=== PATIENT | female | born 1990 | race Caucasian/White ===

== ENCOUNTER → 2018-06-06 15:27 | Outpatient (CLI) | payer SELFPAY ==
[2018-06-06 16:13] LABS: Add Manual Diff / Slide Review NO; Basophils Absolute Auto 100 /uL (0-100); Basophils Percent Auto 0.5 % (0-2); Eosinophils Absolute Auto 100 /uL (0-450); Eosinophils Percent Auto 0.9 % (2-4); Hematocrit 40.3 % (36-46); Hemoglobin 13.8 g/dL (12.0-16.0); Lymphocytes Absolute Auto 3000 /uL (1100-4500); Lymphocytes Percent Auto 21.6 % (25-40); Mean Corpuscular HGB Conc 34.3 % (30-36); Mean Corpuscular Hemoglobin 28.5 PG (26-34); Mean Corpuscular Volume 83.1 fL (80-100); Monocytes Absolute Auto 900 /uL (0-900); Monocytes Percent Auto 6.8 % (3-14); Neutrophils Absolute Auto 9700 /uL (1500-7000); Neutrophils Percent Auto 70.2 % (50-75); Platelet Count 214 X10^3/uL (150-400); Red Blood Cell Count 4.85 X10^6/uL (4.0-5.2); Red Cell Distribution Width 13.4 % (11.6-14.8); White Blood Cell Count 13.8 X10^3/uL (4.5-11.0)
[2018-06-06 17:23] LABS: Hepatitis B Surface Antigen NEGATIVE s/c (NEGATIVE); Rubella Antibody IgG 89.1 IU/mL (>15)
[2018-06-06 17:39] LABS: HIV 1 and 2 Antibody NEGATIVE (NEGATIVE); Hep C Virus Ab w/Reflex Quant NEGATIVE s/c (NEGATIVE)
[2018-06-06 21:16] LABS: Urine N gonorrhoeae NOT DETECTED
[2018-06-06 21:29] LABS: Urine Chlamydia NOT DETECTED
[2018-06-10 19:31] LABS: RPR Screen Nonreactive (Nonreactive)
== END ==
PROVIDERS: PCP Obstetrics & Gynecology; Visit Provider Obstetrics & Gynecology
DX: Z34.81 Encounter for supervision of other normal pregnancy, first trimester (principal)
CPT/HCPCS: 36415; 80055; 86703; 86787; 86803; 86850; 86900; 86901; 87491; 87591

== ENCOUNTER → 2018-07-04 12:09 | Outpatient (CLI) | payer SELFPAY ==
[2018-07-09 13:56] LABS: AFP, Serum 32.9 ng/mL; Calc Gestational Age 16.9; Cigarette Smoker N; Donated Egg NOT GIVEN; Donor Egg Age NOT GIVEN; Estriol, Free 0.72 ng/mL; Inhibin A, Dimeric 99 pg/mL; Maternal Weight 280 lbs; Number of Fetuses 1; Previous Pregnancy Down Syndro NOT GIVEN; hCG, MoM 1.49; hCG, Serum 31.2 IU/mL
== END ==
PROVIDERS: PCP Obstetrics & Gynecology; Visit Provider Obstetrics & Gynecology
DX: Z34.82 Encounter for supervision of other normal pregnancy, second trimester (principal)
CPT/HCPCS: 36415; 82105; 82677; 84702; 86336; 87086

== ENCOUNTER → 2018-07-24 10:35 | Outpatient (CLI) | payer SELFPAY ==
--- NOTE | 2018-07-24 10:37 | DI.US.S_ITS ---
PROCEDURE: US OB >= 14 WEEKS FETUS INDICATIONS: Anatomy Survey OUTSIDE/PRIOR DATING DATA: Last menstrual period (LMP): 03/08/18. LMP-based estimated date of delivery (JEFF): 12/13/18. First dating scan (date and location): 05/08/18. Estimated date of delivery (JEFF) from first dating scan: 12/11/18 TECHNIQUE: Real-time scanning was performed of the fetus, with image documentation and biometric measurements. Endovaginal scanning: Not performed COMPARISON: [facility], , OB >= 14 WEEKS FETUS, 07/04/2018, 12:45. FINDINGS: General: A single living intrauterine gestation is present. Presentation: Vertex. Placenta: Placental position is fundal, without previa. Amniotic fluid index: 13.0 cm, normal range is 5-24 cm. heart rate: 150 beats per minute. Maternal cervical canal: 4.8 cm long. Normal lower limit is 2.5 cm. biometrics: Biparietal diameter: 4.5 cm, 19 weeks 5 days Head circumference: 17.3 cm, 19 weeks 6 days Abdominal circumference: 14.6 cm, 19 weeks 6 days Femur length: 3.3 cm, 20 weeks 2 days Estimated gestational age from initial scan: 19 weeks 5 days Composite gestational age from present scan: 20 weeks zero days Estimated weight and percentile: 327 g, 63rd percentile Measurement variability for biometric dating: +/- 7 days from 14 weeks to 15 weeks 6 days gestation, +/- 10 days from 16 weeks to 21 weeks 6 days gestation, +/- 2 weeks from 22 weeks to 27 weeks 6 days gestation, +/- 3 weeks for 28 weeks gestation or later. weight reference: 4500 g or EFW >90/95% is considered macrosomia or large for gestational age. EFW <10% is small for gestational age. EFW 5% or less is considered intra-uterine growth restriction. Anatomic survey: Neuro: Ventricles are non-dilated at less than 10 mm. Cisterna magna is normal at 3-11 mm. Cerebellum is normal in size and morphology. Nuchal skin fold: Normal at less than 6 mm between 14-21 weeks gestational age. Face: Nose and lips, facial profile are normal. Spine: No evidence for spina bifida. Heart: 4 chambered heart and ventricular outflow tracts are not well visualized due to body habitus and gestational lie. Diaphragm: Diaphragm is intact. Stomach: Left-sided stomach is present. Kidneys: No hydronephrosis. Normal is less than 5 mm in 2nd trimester, less than 7 mm in 3rd trimester. Cord: 3-vessel cord has orthotopic insertion. Bladder: Normal in size. Extremities: All 4 extremities identified. IMPRESSION: Single living intrauterine fetus in vertex presentation demonstrating expected interval growth. heart not well-visualized as above. Recommend followup. Remaining anatomic survey within normal limits. Dictated by: Ildefonso Escamilla M.D. on 07/24/2018 at 15:07 Approved by: Ildefonso Escamilla M.D. on 07/24/2018 at 15:13
== END ==
PROVIDERS: PCP Obstetrics & Gynecology; Visit Provider Obstetrics & Gynecology
DX: Z34.82 Encounter for supervision of other normal pregnancy, second trimester (principal); Z3A.20 20 weeks gestation of pregnancy
CPT/HCPCS: 76811

== ENCOUNTER → 2018-09-17 09:30 | Outpatient (CLI) | payer OTHER, MEDICAID, SELFPAY ==
[2018-09-17 11:30] LABS: Hematocrit 37.7 % (36-46); Hemoglobin 12.8 g/dL (12.0-16.0)
[2018-09-17 11:53] LABS: GTT (PREG) 1 Hour PP 50gm Dose 147 mg/dL (76-139)
== END ==
PROVIDERS: PCP Obstetrics & Gynecology; Visit Provider Obstetrics & Gynecology
DX: Z34.82 Encounter for supervision of other normal pregnancy, second trimester (principal)
CPT/HCPCS: 36415; 82950; 85014; 85018

== ENCOUNTER → 2018-09-25 07:50 | Outpatient (CLI) | payer OTHER, MEDICAID, SELFPAY ==
[2018-09-25 09:17] LABS: Glucose Fasting Gestational 84 mg/dL (76-95)
[2018-09-25 10:46] LABS: Glucose 1 Hour Gest 158 mg/dL (76-180)
[2018-09-25 11:12] LABS: Glucose Tol Interp,Gestational INTERPRETATION
[2018-09-25 11:16] LABS: Glucose 2 Hour Gest 128 mg/dL (76-155)
[2018-09-25 12:30] LABS: Glucose 3 Hour Gest 92 mg/dL (76-140)
== END ==
PROVIDERS: PCP Obstetrics & Gynecology; Visit Provider Obstetrics & Gynecology
DX: O99.810 Abnormal glucose complicating pregnancy (principal)
CPT/HCPCS: 36415; 82951; 82952

== ENCOUNTER 2018-10-04 15:03 | Outpatient (CLI) | payer OTHER, MEDICAID, SELFPAY | END 2018-10-04 16:42 | disposition home or self-care (01) | LOC: LABOR 16:04 → OB 10-09 10:24 | PROVIDERS: PCP Obstetrics & Gynecology | DX: Z34.83 Encounter for supervision of other normal pregnancy, third trimester (principal); R19.7 Diarrhea, unspecified; Z3A.30 30 weeks gestation of pregnancy | CPT/HCPCS: 59025; G0378; G0379 ==

== ENCOUNTER 2018-11-13 20:38 | Observation (INO) | payer OTHER, MEDICAID, SELFPAY ==
[2018-11-13] MEDS: LACTATED RINGERS 1,000 ML 1000 ML IV (23:10)
[2018-11-13] MEDS: NIFEdipine 10 MG CAPSULE PO (23:38)
[2018-11-14] MEDS: NIFEdipine 10 MG CAPSULE PO ×3 (00:01→00:41)
== END 2018-11-14 01:05 | disposition home or self-care (01) ==
LOC: LABOR 20:41
PROVIDERS: Admitting Provider Obstetrics & Gynecology; PCP Obstetrics & Gynecology; Visit Provider Obstetrics & Gynecology
DX: O26.893 Other specified pregnancy related conditions, third trimester (principal); Z3A.35 35 weeks gestation of pregnancy
CPT/HCPCS: 59025; 59050; 96360; G0378; G0379

== ENCOUNTER → 2018-11-20 15:46 | Outpatient (CLI) | payer OTHER, MEDICAID, SELFPAY ==
[2018-11-21 14:29] LABS: Strep Grp B PCR NEG for Grp B Strep
== END ==
PROVIDERS: PCP Obstetrics & Gynecology; Visit Provider Obstetrics & Gynecology
DX: Z34.82 Encounter for supervision of other normal pregnancy, second trimester (principal); Z36.85 Encounter for antenatal screening for Streptococcus B
CPT/HCPCS: 87653

== ENCOUNTER 2018-12-06 10:30 | Inpatient (IN) | payer OTHER, MEDICAID, SELFPAY ==
[2018-12-06] VITALS (10 sets, daily range): BP systolic 101–124; BP diastolic 50–75; PULSE 72–99; RESP 12–18; TEMP 36.2–36.3; O2SAT 94–99
[2018-12-06] MEDS: LACTATED RINGERS 1,000 ML 100 ML IV ×3 (11:20→18:10)
[2018-12-06 11:22] LABS: Add Manual Diff / Slide Review NO; Basophils Absolute Auto 100 /uL (0-100); Basophils Percent Auto 0.5 % (0-2); Eosinophils Absolute Auto 100 /uL (0-450); Eosinophils Percent Auto 0.4 % (2-4); Hematocrit 37.5 % (36-46); Hemoglobin 12.7 g/dL (12.0-16.0); Lymphocytes Absolute Auto 2300 /uL (1100-4500); Lymphocytes Percent Auto 16.8 % (25-40); Mean Corpuscular HGB Conc 33.8 % (30-36); Mean Corpuscular Hemoglobin 27.9 PG (26-34); Mean Corpuscular Volume 82.8 fL (80-100); Monocytes Absolute Auto 1000 /uL (0-900); Monocytes Percent Auto 7.5 % (3-14); Neutrophils Absolute Auto 10400 /uL (1500-7000); Neutrophils Percent Auto 74.8 % (50-75); Platelet Count 195 X10^3/uL (150-400); Red Blood Cell Count 4.53 X10^6/uL (4.0-5.2); Red Cell Distribution Width 14.2 % (11.6-14.8); White Blood Cell Count 13.9 X10^3/uL (4.5-11.0)
[2018-12-06] MEDS: LACTATED RINGERS 1,000 ML 1000 ML IV (11:56)
[2018-12-06] MEDS: CEFAZOLIN 2 GM/100 ML FROZ.PIGGY IV ×2 (12:58→17:02)
[2018-12-06] MEDS: ACETAMINOPHEN IV 1,000 MG/100 ML VIAL 400 MG IV (13:15)
--- NOTE | 2018-12-06 13:21 | PM.PREOP ---
Pre-operative Note Interval Note History & Physical reviewed/Exam performed by Physician: Yes Changes to H&P: No
--- NOTE | 2018-12-06 13:43 | SUR.OPER ---
Supine on Padded OR bed, head on pillow, safety belt at thigh, arms secured on padded arm boards at <90 degrees abduction. Bump under right buttock. Legs uncrossed with pillow under knees, gel pad to heels, tape over blanket to lower legs.
--- NOTE | 2018-12-06 13:53 | SUR.OPER ---
preoperative LVY=642, live female at 1336
[2018-12-06] MEDS: ONDANSETRON 4 MG/2 ML INJ IV (14:23)
--- NOTE | 2018-12-06 15:10 | SUR.PHASEI ---
Pt transferred to center room 1 via bed. Last vital signs stable and pain at tolerable level per pt; see flowsheet documentation for details. Fundus firm and 1 below umbilicus, but off set to the right; Dr Evans aware as the fundus was also off set to the right in the OR and was marked as such. Small amount of free flowing red lochia with fundal massage. Report given to BARB Bah prior to transfer. Upon arrival to room 1 BARB Bah and BARB Serrano at bedside; handoff assessment done. Upon assessment of fundus with massage pt expelled several large clots with a moderate to large amount of free flowing red lochia. BARB Serrano to weigh blood and clots and notify Dr Evans. Maggie and Niurka to assume care of pt at this time.
[2018-12-06] MEDS: OXYTOCIN 10 UNIT/ML VIAL 20 UNIT (16:45)
--- NOTE | 2018-12-06 17:05 | P.OP_ITS ---
Operative Date/Time/Diagnoses Date of procedure: 12/06/18 Time of procedure: 14:00 Pre-op diagnosis: 39 weeks gestation Previous section Post-op diagnosis: same Procedure & Clinicians Procedure: Procedures Operation Date: 12/06/18 12:45 Actual Procedures Side Surgeon p Section-Repeat Valencia Evans MD Operation Date: 12/06/18 16:55 <No data on this case meets the specified criteria> Indications: 39 weeks gestation Previous section Surgeon: Valencia Evans Controller Coal [employer] Ore: Bartolo Molina Anesthesia Type: Spinal Operative Notes Findings: Live female infant Normal uterus tubes and ovaries Closure Type: primary Specimen(s): other (Placenta, cord bloods) Applied: catheter Estimated blood loss (mL): 500 Blood products transfused: none Procedure in detail: The patient was taken to the operating room where she was placed in the seated position. Spinal anesthesia with Duramorph was administered. The patient was then placed in the dorsal supine position with a leftward tilt. She was prepped and draped in the usual sterile fashion. A timeout was performed. After spinal analgesia was found to be adequate, a Pfannenstiel skin incision was made through the previous incision and carried through to the underlying layer fascia. The fascia was nicked in the midline, and the incision extended bilaterally with the Werner scissors. The superior aspect of the fascial incision was grasped with a Cordova clamps, elevated, and the underlying rectus muscles dissected off sharply and bluntly. Attention was then turned to the inferior aspect of this incision which in a similar fashion was grasped with a Cordova clamps, elevated, and the underlying rectus muscles dissected off sharply and bluntly. The rectus muscles were in the midline. The peritoneum was identified, grasped between 2 hemostats, and entered sharply with the Metzenbaum scissors. This incision was extended superiorly and inferiorly with good visualization of the bladder. The bladder blade was inserted. The vesicouterine peritoneum was identified, grasped with the pickup, and entered sharply with the Metzenbaum scissors. This incision was extended bilaterally, and the bladder flap was created digitally. The bladder blade was reinserted. The lower uterine segment was incised in a transverse fashion with the scalpel. Upon entering the amniotic sac there was moderate amount of clear amniotic fluid. The infant's head was delivered with vacuum assistance. The nose and mouth were suctioned with bulb suction. The remainder of the body delivered without difficulty. The cord was double clamped and cut. The was handed off to waiting RN and RT. The placenta was delivered manually. The uterus was cleared of all clots and debris. The uterine incision was repaired with #1 chromic in a running interlocking fashion, and a second layer the same suture was used for an imbricating layer. Hemostasis was achieved. The tubes and ovaries were examined and were found to be normal. The gutters were cleared of all clots and debris. The bladder flap was reapproximated using 2-0 Vicryl in a running fashion. The parietal peritoneum was closed using 2-0 Vicryl in a running fashion. The fascia was reapproximated using 0 Vicryl in a running fashion. The subcutaneous layer was copiously irrigated with warm normal saline. 5 simple interrupted sutures of 3-0 Vicryl were placed to reapproximate the subcutaneous layer. The skin was closed with 4-0 undyed Biosyn in a subcuticular fashion. Steri-Strips were placed. An Aquacell dressing was placed. The uterus was expressed of a moderate amount of old blood and clot. Sponge, lap, and instrument counts were correct x-2. The patient tolerated the procedure well, and was taken to PACU in stable condition. Complications: none Post-operative Condition: stable Disposition: PACU Plan for aftercare: To the center after recovery
--- NOTE | 2018-12-06 17:06 | PM.PREOP ---
Pre-operative Note Interval Note History & Physical reviewed/Exam performed by Physician: Yes Changes to H&P: No
--- NOTE | 2018-12-06 17:52 | SUR.OPER ---
Lithotomy on padded OR bed, head on pillow, arms secured on padded arm boards at <90 degrees abduction. Legs secured in padded yellow fins stirrups.
[2018-12-06] MEDS: OXYCODONE/ACETAMINOPHEN 5/325 TABLET 2 TAB PO (20:14)
[2018-12-06] MEDS: NALBUPHINE 20 MG/ML AMPUL 5 MG IV (20:15)
[2018-12-07] MEDS: KETOROLAC 30 MG/ML VIAL IV ×2 (02:53→09:29)
[2018-12-07] MEDS: NALBUPHINE 20 MG/ML AMPUL 5 MG IV (02:54)
[2018-12-07] MEDS: LACTATED RINGERS 1,000 ML 100 ML IV (03:32)
[2018-12-07] MEDS: OXYCODONE/ACETAMINOPHEN 5/325 TABLET 2 TAB PO ×4 (07:24→20:09)
[2018-12-07] MEDS: PRENATAL VIT,CALC/IRON/FOLIC 1 TABLET 1 TAB PO (07:24)
[2018-12-07] MEDS: DOCUSATE 250 MG CAPSULE PO (07:24)
[2018-12-07 07:53] LABS: Hematocrit 28.8 % (36-46); Hemoglobin 9.7 g/dL (12.0-16.0)
[2018-12-07] MEDS: IBUPROFEN 600 MG TABLET PO ×2 (16:08→22:09)
[2018-12-08] MEDS: OXYCODONE/ACETAMINOPHEN 5/325 TABLET 2 TAB PO ×3 (00:14→08:23)
[2018-12-08] MEDS: IBUPROFEN 600 MG TABLET PO ×2 (04:16→11:15)
[2018-12-08 07:00] VITALS: BP 129/79; PULSE 94; RESP 17; TEMP 36.7
--- NOTE | 2018-12-08 08:21 | PM.OBPN.1 ---
Subjective - OB Subjective Patient comments: pain well controlled Soquel baby status: doing well and nursing well Soquel feeding status: exclusively breast feeding Narrative: Patient is a 28-year-old 2 para 2 postop day # 1 status post repeat section Last evening she had some increased bleeding after the section. Her uterus was found to be full of clot. She was taken to the operating room where the clot was evacuated and a Bakri balloon was placed. She is having some mild cramping today. Date Patient Seen: 12/07/18 Time Patient Seen: 10:00 Exam Vital Signs (past 8 hours): Oxygen Delivery Method Room Air Narrative Exam Narrative: Generally: Patient is sitting up in bed, nursing infant, no acute distress Lungs: Clear to auscultation bilaterally Cardiovascular: Regular rate and rhythm Fundus: Firm at U -2 Incision: Clean dry and intact with Aquacel dressing Extremities: Negative Homans, no edema Objective Labs Result Diagrams: 12/07/18 06:30 Assessment & Plan Plan day: 1 plan OB: other (Begin removal of Bakri balloon with 30 cc/hour) Time Spent With Patient Time: Total time spent is greater than 50% in coordination of care (as documented) at patient's floor/unit and/or counseling patient: Time with patient: 15-24 minutes
[2018-12-08] MEDS: PRENATAL VIT,CALC/IRON/FOLIC 1 TABLET 1 TAB PO (08:23)
[2018-12-08] MEDS: DOCUSATE 250 MG CAPSULE PO (08:23)
--- NOTE | 2018-12-08 08:23 | PM.GYNOP.1 ---
Operative Date/Time/Diagnoses Date of procedure: 12/06/18 Time of procedure: 20:30 Pre-op diagnosis: Uterus full of clots Increased post operative bleeding Post-op diagnosis: same Procedure & Clinicians Procedure: Procedures Operation Date: 12/06/18 12:45 Actual Procedures Side Surgeon p Section-Repeat Valencia Evans MD Operation Date: 12/06/18 16:55 Actual Procedures Side Surgeon p suction dilation and currettage, evacuation of clot, insertion of bakri Valencia Evans MD Indications: Uterus full of clots Increased postoperative bleeding after repeat section Surgeon: Valencia Evans Anesthesia Type: General Operative Notes Findings: Uterus at U +3 Uterus full of clot Closure Type: not applicable Specimen(s): none Applied: catheter Estimated blood loss (mL): 700 Blood products transfused: none Procedure in detail: After informed consent was obtained, the patient was taken to the operating room where she was placed in the dorsal supine position. After adequate general endotracheal anesthesia was achieved, she was placed in the dorsal lithotomy position, and prepped and draped in the usual sterile fashion. A bivalve speculum was placed into the vagina. The vagina was cleared of old clot with suction. A ring forcep was placed on the anterior lip of the cervix. A # 12 Curved plastic curette plastic easily into the endometrial cavity. A large amount of clot was extracted. The suction was removed from the uterus. Bimanual exam was performed and a large amount of clot was removed from the fundus of the uterus. Several more passes with suction revealed a small amount of clot and then fresh blood. Pitocin was given in the IV fluids. A Bakri balloon was placed in the fundus of the uterus. The balloon was filled with 240 cc of sterile water. The balloon was placed to drainage with a grenade. There was a small amount of fresh blood in the grenade. The ring forcep was removed from the anterior lip of the cervix. The bivalve speculum was removed from the vagina. Sponge, lap, and instrument counts were correct x2. The patient tolerated the procedure well, and was taken to PACU in stable condition. Complications: none Post-operative Condition: stable Disposition: PACU Plan for aftercare: To the center after recovery
--- NOTE | 2018-12-08 08:27 | P.DS_ITS ---
History of Present Illness History of Present Illness Date Patient Seen: 12/08/18 Time Patient Seen: 08:28 Chief complaint: [id number] REPEAT Narrative: Patient is a 28-year-old 2 para 2 postop day # 2 status post repeat low-transverse section. She had postop bleeding and a uterus full of clot and was taken to the operating room where the clot was evacuated and a Bakri balloon was placed. The balloon was removed slowly on postop day # 1. Once it was removed the patient's Richmond catheter was removed. She was able to void without difficulty. is going well. Pain is well controlled. She is tolerating a diet. She is ambulating without assistance. Discharge Providers Provider Date of admission: 12/06/18 10:30 Discharge Date: 12/08/18 Primary care physician: Valencia Evans MD Consults: 12/06/18 16:19 Consult to Manager Valuation Routine Comment: Discharge provider: Valencia Evans MD Summary Hospital Course Discharge Diagnosis: 39 weeks gestation Previous section Repeat low-transverse section Postoperative bleeding and uterine full of clots Evacuation of clot and placement of Bakri balloon under anesthesia Hospital Course: The patient presented on 12/06/2018 for a scheduled repeat low- transverse section. She underwent this without complication. Several hours later she had increased bleeding was found to have a uterus full of clot. She was taken to the operating room where the clot was evacuated and a Bakri balloon was placed. This was left in overnight as well as her catheter. The next morning the balloon was slowly deflated at 30 cc/hour up to 240 cc. And there was no increased bleeding. The Richmond catheter was removed. She was able to void without the catheter without difficulty. She was tolerating a diet, ambulating without assistance, was going well. And pain was well controlled. Status at Discharge Cognitive/behavioral status at discharge: oriented Functional status at discharge: independent ambulation Overall status at discharge: patient is progressing back to baseline Time Spent with Patient Time spent: Less than 30 minutes Exam Vital Signs (past 8 hours): Oxygen Delivery Method Room Air Objective Labs Result Diagrams: 12/07/18 06:30 Discharge Plan Discharge Plan Patient Disposition: Home Discharge comment: Call with fever, chills, redness or drainage around incision or bleeding vaginally more than a pad in an hour Discharge Med Rec/Prescriptions Prescriptions: New oxycodone-acetaminophen [Percocet] 5-325 mg tablet 1 tab PO Q4-6H PRN (Reason: pain) Qty: 30 RF: 0 Continued OB Complete Premier 1 EACH tablet 1 tab PO Q DAY Qty: 0 RF: 0 Follow up/Referrals: Valencia Evans MD [Primary Care Provider] - (please follow up w/ Dr. Evans on Dec.13 @ 2:00pm. please follow up with Dr. Evans on Monday, January 09 at 2:00 pm for 6 wk appt. Please come in at 1:40 pm to check in and fill out any necessary paperwork.) Provider Discharge Instructions Diet: Regular Skin/Wound/Dressing Care Report to your healthcare provider any signs of infection, such as:: increased pain, unusual drainage and unusual redness Dressing: Do not remove Visit Report/Discharge Packet Instructions: DI for Discharge Data Primary Care Provider: Valencia Evans
== END 2018-12-08 11:40 | disposition home or self-care (01) | DRG 540 ==
PROVIDERS: Admitting Provider Obstetrics & Gynecology; PCP Obstetrics & Gynecology; Visit Provider Obstetrics & Gynecology
PROC: 10D00Z1 Extraction of Products of Conception, Low, Open Approach (ICD-10-PCS; CPT 59514; principal; 2018-12-06 12:45)
DX: O34.219 Maternal care for unspecified type scar from previous cesarean delivery (principal); Z3A.39 39 weeks gestation of pregnancy; Z37.0 Single live birth; O88.23 Thromboembolism in the puerperium
CPT/HCPCS: 36415; 59050; 59514; 59899; 85014; 85018; 85025; 86850; 86900; 86901; J0131; J0690; J1100; J1885; J2274; J2300; J2405; J2590; J2704; J3010

== ENCOUNTER → 2023-04-13 10:08 | Outpatient (CLI) | payer OTHER, SELFPAY ==
--- NOTE | 2023-04-13 10:10 | DI.MG.S_ITS ---
BILATERAL DIGITAL DIAGNOSTIC MAMMOGRAM 3D/2D: 04/13/2023 CLINICAL: Baseline exam. Left breast mass. No prior exams were available for comparison. There are scattered areas of fibroglandular density in both breasts (category b / 25%-50% glandular tissue). No significant masses, calcifications, or other findings are seen in either breast. IMPRESSION: INCOMPLETE: NEEDS ADDITIONAL IMAGING EVALUATION There is no abnormality seen in the left breast to correspond with the area of clinical concern, however, ultrasound is recommended. Based on the Tyrer Cuzick model (a risk assessment model) the patient's lifetime risk is 13.9% and her 10 year risk is 0.6%. According to the ACR, ACS, and NCCN guidelines, an annual breast MRI exam along with mammogram is recommended if the patient's lifetime risk is 20% or greater. This exam was interpreted at Station ID: [id number]. NOTE: For mammograms, a report in lay terms will be sent to the patient. Approximately 15% of breast malignancies will not be visualized mammographically. In the management of a palpable breast mass, a negative mammogram must not discourage biopsy of a clinically suspicious lesion. Electronically Signed By: Robert Mcfarlane M.D. lc/:04/13/2023 11:07:14 Entry: - 04/14/2023 13:13:48 ACR BI-RADS Category 0: Incomplete [id number]
--- NOTE | 2023-04-13 10:10 | DI.US.S_ITS ---
ULTRASOUND OF LEFT BREAST: 04/13/2023 CLINICAL: Palpable left breast lump. Comparison is made to exam dated: 04/13/2023 mammogram - [facility]. Color flow and real-time ultrasound of the left breast were performed. Lucero scale images of the real-time examination were reviewed. No significant abnormalities were seen sonographically in the left breast. IMPRESSION: NEGATIVE There is no sonographic evidence of malignancy. There are no abnormalities seen in the left breast to correspond with the areas of clinical concern at 1 and 2 o'clock, however, clinical correlation and clinical followup are recommended. Reimaging should be obtained if new or worsening symptoms develop. This exam was interpreted at Station ID: [id number]. Electronically Signed By: Robert Mcfarlane M.D. lc/:04/13/2023 11:08:54 letter sent: Clinical Evaluation Ultrasound BI-RADS: 1 Negative
== END ==
PROVIDERS: Referring Provider Internal Medicine Gastroenterology; Visit Provider Internal Medicine Gastroenterology
DX: N63.21 Unspecified lump in the left breast, upper outer quadrant (principal); R92.2 Inconclusive mammogram; R92.323 Mammographic fibroglandular density, bilateral breasts
CPT/HCPCS: 76642; 77066; G0279